=== PATIENT | male | born 1950 | race Two or more races ===

== ENCOUNTER 2016-11-09 20:29 | Emergency (ER) | payer OTHER, MEDICARE ==
[2016-11-09] MEDS ORDERED: LACTATED RINGERS 1,000 ML ONE (21:02)
[2016-11-09] MEDS ORDERED: ACETAMINOPHEN 325 MG TABLET ONE (21:02)
[2016-11-09 21:15] LABS: ABSOLUTE NEUTROPHIL COUNT 9.9 K/mm3 (1.8-7.7); BASO # 0.1 K/mm3 (0.0-0.2); BASO % 0.4 % (0.2-1.0); EOS # 0.1 (0.0-0.5); EOS % 1.1 % (0.9-2.9); HEMATOCRIT 46.5 % (32.0-52.0); HEMOGLOBIN 15.1 gm/l (14.0-18.0); IMM NEUT% 0.3 % (0-1); LYMPH # 1.7 (1.0-4.8); LYMPH % 13.8 % (15-45); MEAN CELL VOLUME 96.9 fl (80.0-94.0); MEAN CORPUSCULAR HEMOGLOBIN 31.5 pg (27.0-31.0); MEAN CORPUSCULAR HGB CONC 32.5 g/dl (33.0-37.0); MEAN PLATELET VOLUME 10.1 fl (7.4-10.4); MONO # 0.7 (0.0-0.8); MONO % 5.6 % (4-12); NEUT % 78.8 % (43-75); PLATELET COUNT 292 K/mm3 (130-400); RED CELL DISTRIBUTION WIDTH 13.6 % (11.5-14.5)
[2016-11-09 21:20] LABS: INR 1.12; PROTHROMBIN TIME 11.9 SECONDS (9.3-11.4)
[2016-11-09 21:22] LABS: URINE BILIRUBIN NEGATIVE (NEGATIVE); URINE BLOOD 1+ (NEGATIVE); URINE GLUCOSE (UA) NEGATIVE (NEGATIVE); URINE LEUKOCYTE ESTERASE NEGATIVE (NEGATIVE); URINE NITRITE NEGATIVE (NEGATIVE); URINE PROTEIN NEGATIVE (NEGATIVE); URINE UROBILINOGEN NORMAL (0-1 mg/dl)
[2016-11-09 21:25] LABS: URINE APPEARANCE CLEAR; URINE COLOR YELLOW
[2016-11-09 21:25] LABS: ALB/GLOB RATIO 0.7 (>1.0); ALBUMIN 3.8 gm/dL (3.5-5.7); CALCIUM 9.4 mg/dL (8.6-10.3); MAGNESIUM 1.6 mg/dL (1.9-2.7)
[2016-11-09 21:43] LABS: URINE BACTERIA 0; URINE EPITHELIAL CELLS RARE /hpf; URINE RBC 0-1 /hpf; URINE WBC NEG /hpf
[2016-11-09] MEDS ORDERED: PROCHLORPERAZINE 5 MG/ML 2 ML VIAL ONE (22:44)
[2016-11-09] MEDS ORDERED: DIPHENHYDRAMINE HCL 50 MG/1 ML VIAL ONE (22:44)
[2016-11-10] MEDS ORDERED: SODIUM CHLORIDE 0.9% 50 ML IV ONE (00:10)
[2016-11-10] MEDS ORDERED: AZITHROMYCIN 250 MG TABLET ONE (00:10)
[2016-11-10] MEDS ORDERED: CEFTRIAXONE SODIUM 1 G VIAL ONE (00:10)
[2016-11-10] MEDS ORDERED: HYDROCODONE/ACETAMINOPHEN 5/325MG TABLET ONE (00:31)
--- NOTE | 2016-11-10 10:00 | CT ---
CHEST W/O CON COMPARISON: CT chest without contrast 09/29/2016 HISTORY: 66-year-old male, [place] , with structural lung disease, presents with fever today and altered mental status. The patient is negative for influenza and the labs are unremarkable. Technique: The thorax was imaged with a [employer] Aquilion [address] scanner. No intravenous contrast. An automated dose reduction technique was used to minimize patient radiation dose. Dose information: CTDIvol (mGy): 15.60 DLP(mGycm): 623.80 FINDINGS: Lungs: Several sites of consolidation and groundglass opacity in the left lower lobe. Chronic findings include multiple pulmonary cysts and both calcified and noncalcified nodules diffuse throughout both lungs. Heart and vessels: Extensive calcification of the coronary arteries. Trachea and bronchi: Normal. Mediastinum and bianca: Pretracheal adenopathy, short axis diameter 16 mm, compared to 10 mm on 09/29/2016. Pleura and pericardium: Normal. Chest wall: Normal. Bones: No acute finding. Partial resection of the right fifth rib. Posterior fusion between right ribs 8 and 9. Upper abdomen: No acute finding. Scattered calcifications in the liver. IMPRESSION: 1. Left lower lobe opacities, evidence of pneumonia. Reactive pretracheal adenopathy 2. Chronic findings in the lungs including multiple cysts and calcified nodules. Amyloidosis can have this appearance and has been associated with exposure to [employer] [place]. 3. Incidental findings include partial resection of the right fifth rib and posterior osseous fusion between right ribs 8 and 9, coronary artery atherosclerosis, and calcified granulomas in the liver. Preliminary report by [facility] radiologist Theodore Barcenas MD 11/09/2016 at 22:49
== END 2016-11-10 00:58 | disposition home or self-care (01) ==
LOC: ED 20:29
DX: J18.8 Other pneumonia, unspecified organism (principal); J44.9 Chronic obstructive pulmonary disease, unspecified; I25.10 Atherosclerotic heart disease of native coronary artery without angina pectoris; I10 Essential (primary) hypertension; Z95.5 Presence of coronary angioplasty implant and graft
CPT/HCPCS: 83605; 83690; 83880; 85025; 87040; 80053; 83735; 85610; 84484; 81001; 71250; 87804; 96375 ×2; 99284 ×2; 96361 ×2; 96365; 93005; J1200; J0780; J0696; A9270 ×3; J7120; J7050